=== PATIENT | female | born 1975 | race Two or more races ===

== ENCOUNTER 2025-06-09 04:32 | Emergency (ER) | payer OTHER, SELFPAY ==
[2025-06-09] VITALS (8 sets, daily range): BP systolic 80–147; BP diastolic 60–91; PULSE 70–98; RESP 16–20; TEMP 36.4–36.9; O2SAT 95–99; BMI 41.6
--- NOTE | ~2025-06-09 | CT_ITS ---
EXAMINATION: CT CHEST WITH CONTRAST CLINICAL INFORMATION: Abnormal chest x-ray. Left hilar abnormality. COMPARISON: Chest radiograph earlier same day. TECHNIQUE: Multidetector volumetric CT imaging of the chest was obtained after the administration of 50 mL of Omnipaque 350 intravenous contrast without immediate adverse reactions. Axial MIP volume rendering provided. Sagittal and coronal reformatted images were obtained. This CT examination was performed using dose optimization techniques as appropriate, variously including the following: *Automated exposure control *Adjustment of mA and/or kV according to patient size (this includes techniques or standardized protocols for targeted exams where dose is matched to indication/reason for exam; i.e. extremities or head) *Use of iterative reconstruction technique FINDINGS: LUNGS: The lungs are well inspired bilaterally. There is linear atelectasis or scarring in the right upper lobe. There are no consolidations or abnormal groundglass opacities. There is mild respiratory motion degradation. There is no effusion or pneumothorax. The small airways appear normal. Central airways are patent with mild expiratory appearance. 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 There is dilatation of the main and left greater than right pulmonary arteries in keeping with pulmonary arterial hypertension. This represents the abnormality seen on chest x-ray. Heart size is borderline enlarged. There is no pericardial effusion. The aorta is somewhat small in caliber however there is no evidence of acute aortic syndrome. There is no adenopathy or mass. The thyroid is normal. No esophageal abnormality. AXILLA\CHEST WALL: No lymphadenopathy or mass. UPPER ABDOMEN: Refer to the dedicated abdominal CT performed concurrently. OSSEOUS STRUCTURES: Median sternotomy. No lytic or blastic suspicious bone lesion. CT/CT chest w IV con IMPRESSION: 1. 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 2. Dilated pulmonary outflow tract and left greater than right main pulmonary arteries, responsible for the left hilar abnormality seen on chest x-ray. 3. There is no active lung disease identified. Electronically signed by: Nhan Angela MD 06/09/2025 10:45 AM EDT
--- NOTE | ~2025-06-09 | XR_ITS ---
CLINICAL HISTORY: upright, forceful vomiting, eval for free air 1 view chest x-ray Comparison: None provided Findings: The lungs are clear. Left hilar convexity is present. The heart is normal in size. Median sternotomy wires are present. No acute fracture. IMPRESSION: Left hilar convexity of indeterminate etiology. Recommend CT chest for further evaluation. This document has been electronically signed by: Erica Segura on 06/09/2025 05:18:02
--- NOTE | ~2025-06-09 | CT_ITS ---
EXAMINATION: CT ABDOMEN AND PELVIS WITH CONTRAST CLINICAL INFORMATION: Abdominal pain and vomiting. COMPARISON: None available. TECHNIQUE: Multidetector volumetric images were obtained from the superior aspect of the liver through the pubic symphysis following administration 85 mL of Omnipaque 350 intravenous contrast. Sagittal and coronal reformatted images were obtained on the technologist's workstation. Oral contrast: No This CT examination was performed using dose optimization techniques as appropriate, variously including the following: *Automated exposure control *Adjustment of mA and/or kV according to patient size (this includes techniques or standardized protocols for targeted exams where dose is matched to indication/reason for exam; i.e. extremities or head) *Use of iterative reconstruction technique FINDINGS: LUNG BASES: The visualized lung bases are unremarkable. Refer to dedicated chest CT performed concurrently. LIVER, GALLBLADDER, AND BILIARY TREE: The liver is normal in size, shape, and attenuation. No focal hepatic lesion or biliary ductal dilatation is present. Gallbladder demonstrates a tiny calcified gallstone within the neck of the gallbladder. Gallbladder otherwise appears normal without evidence of wall thickening or inflammation. PANCREAS: Unremarkable. SPLEEN: Unremarkable. ADRENAL GLANDS: Unremarkable. KIDNEYS AND URETERS: The right kidney is completely atrophic. The left kidney is compensatorily hypertrophied is a normal appearance. There is no hydronephrosis, calculus, or mass. There is no hydroureter. There is mild upper pole cortical scarring noted. BLADDER: Completely contracted although grossly normal. GASTROINTESTINAL TRACT: No evidence of appendicitis. Small bowel and large bowel have a normal appearance without wall thickening or inflammation. There is no obstruction. The rectum appears normal. The stomach is decompressed. The duodenum appears normal. PERITONEUM: No free air or ascites. ABDOMINAL WALL: No significant hernia is appreciated. LYMPH NODES: No abnormal lymphadenopathy. VASCULAR: Unremarkable. PELVIC VISCERA: There is a 2.5 cm simple appearing right ovarian cyst. Uterus and adnexal structures otherwise appear normal. OSSEOUS STRUCTURES: No suspicious lytic or blastic bone lesions. CT/CT abdomen pelvis w IV con IMPRESSION: 1. No acute findings in the abdomen or pelvis. 2. Completely atrophic right kidney. Compensatorily hypertrophied left kidney. 3. Tiny calcified gallstone. Gallbladder otherwise normal in appearance. 4. Additional ancillary findings as discussed in the body of the report. Electronically signed by: Nhan Angela MD 06/09/2025 10:56 AM EDT RP
--- NOTE | 2025-06-09 04:50 | ECG_ITS ---
Test Reason : SYNCOPE Blood Pressure : */* mmHG Vent. Rate : 76 BPM Atrial Rate : 76 BPM P-R Int : 216 ms QRS Dur : 78 ms QT Int : 392 ms P-R-T Axes : 70 28 99 degrees QTcB Int : 441 ms Sinus rhythm with 1st degree A-V block Low voltage QRS Cannot rule out Inferior infarct , age undetermined Abnormal ECG No previous ECGs available Referred By: Amrita Leal Electronically Signed By: JAGDISH ARCEO MD
[2025-06-09 04:56] LABS: MANUAL DIFF FLAG NO
[2025-06-09 04:57] LABS: Hematocrit 39.3 % (37.0-47.0); Hemoglobin 12.8 g/dl (12.0-16.0); Imm Gran Abs Auto 0.01 X10*3/uL (0.00-0.03); Imm Gran Pct Auto 0.1 % (0.0-0.4); Lymphocytes Absolute Auto 1.9 X10*3/uL (1.2-4.9); Mean Corpuscular HGB Conc 32.6 g/dl (31.0-35.0); Mean Corpuscular Hemoglobin 28.2 pg (27.0-33.0); Mean Corpuscular Volume 86.6 fL (80.0-98.0); NRBC Abs Auto 0.000 X10*3/uL (0.0-0.012); NRBC Pct Auto 0.0 /100WBC (0.0-0.2); Platelet Count 294 X10*3/uL (160-400); Red Blood Count 4.54 X10*6/uL (4.20-5.50); White Blood Count 8.7 X10*3/uL (4.8-10.8)
[2025-06-09] MEDS: Lactated Ringers 1,000 ML 999 ML IV (04:58)
[2025-06-09 05:09] LABS: INTERNATIONAL NORM RATIO 0.9 (0.9-1.1); Prothrombin Time 10.5 SEC (10.9-12.4)
[2025-06-09 05:10] LABS: Alanine Aminotransferase 14 U/L (0-31); Albumin Level 4.1 g/dL (3.5-5.0); Alkaline Phosphatase 58 U/L (39-117); Anion Gap 13 (12-20); Aspartate Amino Transferase 24 U/L (5-31); Blood Urea Nitrogen 13 mg/dL (9-16); Calcium 8.8 mg/dL (8.4-10.2); Carbon Dioxide 19 mmol/L (22-29); Chloride 111 mmol/L (96-108); Creatinine Clr Calc Pharmacy 95.5; Estimated Glomerular Filt Rate > 60; Lipase 34 U/L (8-78); Potassium 3.8 mmol/L (3.3-5.1); Sodium 139 mmol/L (135-145); Total Protein 6.9 g/dL (6.5-8.0)
[2025-06-09 05:17] LABS: Troponin-I High Sensitivity 3.3 ng/L (<3.5-17.0)
--- NOTE | 2025-06-09 06:10 | ED.NAVMDI ---
HPI - Nausea/Vomiting/Diarrhea General Chief complaint: Syncope Stated complaint: Abd Pain , Lethargy , vomiting Time Seen by Provider: 06/09/25 04:40 Source: patient and EMS Mode of arrival: EMS Limitations: language barrier History of Present Illness ED Provider: Dr. Amrita Leal HPI Narrative: 49-year-old female with history of diabetes, on Eliquis presenting with nausea, vomiting and diarrhea ongoing for the last 48 hours or so. Describes several episodes of thick, brown vomit over the course of the day today. Had a near syncopal episode tonight so family called 911. She has had more diarrhea episodes then she can count. Diarrhea is loose and watery, yellow in color. No hematochezia. No reported fever. No known sick contacts, travel, questionable food intake. Of note, patient reports recently starting Ozempic 2 weeks ago. Describes associated epigastric abdominal pain that is nonradiating and constant since it started. Related Data Previous Rx's ?Medication ?Instructions ?Recorded loperamide 2 mg tablet (Imodium 2 mg PO Q6H PRN loose stool #30 06/09/25 A-D) tabs ondansetron 4 mg disintegrating 4 mg PO Q8H PRN nausea and 06/09/25 tablet vomiting #20 tabs Allergies Allergy/AdvReac Type Severity Reaction Status Date / Time ciprofloxacin (From Cipro) Allergy Mild Chest Pain Verified 06/09/25 05:05 Review of Systems Review of Systems: As per HPI, full review of systems performed and negative but for the above mentioned pertinent positives and negatives. [facility] Social History Social History Alcohol intake: never Smoked in Last 30 Days: No Use of substances other than those prescribed or required for medical reasons: No Advance Directives: No Advance Directives Information Provided: No Patient : No Physical Exam Exam: Exam: GENERAL: Ill-Appearing, appears uncomfortable. SKIN: Normal skin color for ethnicity, warm, dry, no rashes noted. HEENT: Normocephalic, atraumatic, no stridor, dry mucous membranes, dentition intact, EOMI, PERRLA. NECK: Soft, supple, full ROM, midline structures nontender, no step-offs, no deformities, no lymphadenopathy. CHEST: Heart regular rhythm, no murmurs, symmetric chest rise and fall. PULMONARY: Clear to auscultation bilaterally, diminished at the bases, no labored breathing, no wheezes/rhales/rhonchi. ABDOMINAL: Soft, nondistended, diffusely tender to palpation without rebound or guarding, hyperactive bowel sounds in all quadrants. : Deferred. MUSCULOSKELETAL: Normal tone, full range of motion, no deformities, no peripheral edema. NEURO: Alert and oriented x3, CN II through XII intact, equal strength and sensation bilateral upper and lower extremities, no focal neurologic deficits. PSYCHIATRIC: Flat affect, fluid speech, good eye contact and appropriate demeanor. Vital Signs: Vital Signs: Last Vital Signs Temp 97.6 F 06/09/25 12:28 Pulse 85 06/09/25 12:28 Resp 18 06/09/25 12:28 BP 146/83 H 06/09/25 12:28 Pulse Ox 99 06/09/25 12:28 O2 Del Method Room Air 06/09/25 12:28 BMI result Body Mass Index 41.6 Course Course Course Narrative: no further vomiting but still having diarrhea no colitis on CT scan no signs of GIB will give immodium stool studies sent off. Reevaluation(s) Reevaluation #1: feeling better tolerating PO symptoms started after eating leftover burger from a fair that she air fried - at this time no GIB here, VS stable, tolerating PO. she is not immunosuppressed no need for abx can be DC home once she is feeling better Alisa Larson, DO 06/09/25 1132 Reevaluation #2: used steam tunnel feeder notified of norovirus dx 151pm had to leave message Medications Administered Discontinued Medications Generic Name Dose Route Start Last Admin Trade Name Areli PRN Reason Stop Dose Admin Diphenoxylate HCl/Atropine 2 tab 06/09/25 11:10 06/09/25 12:22 Diphenoxylate/Atrop 2.5/0.025 Tablet PO 06/09/25 11:11 2 tab ONCE ONE Administration Haloperidol Lactate 5 mg 06/09/25 06:26 06/09/25 07:00 Haloperidol Lactate 5 Mg/Ml Vial IVPUSH 06/09/25 06:27 5 mg ONCE ONE Administration Lactated Ringer's 1,000 mls @ 999 mls/hr 06/09/25 04:40 06/09/25 07:00 Lr IV 06/09/25 05:40 Infused .Q1H1M ONE Infusion Iohexol 100 ml 06/09/25 10:09 06/09/25 10:09 Iohexol 350 Mg/Ml 100 Ml Infus..Btl IV 06/09/25 10:10 85 ml ONCE ONE Administration Ondansetron HCl 4 mg 06/09/25 04:40 06/09/25 04:53 Ondansetron Hcl 4 Mg/2 Ml Vial IVPUSH 06/09/25 04:41 4 mg ONCE ONE Administration Pantoprazole Sodium 40 mg 06/09/25 04:40 06/09/25 04:53 Pantoprazole Sodium 40 Mg/10 Ml Vial IVPUSH 06/09/25 04:41 40 mg ONCE ONE Administration Medical Decision Making Medical Decision Making [facility] Narrative: Patient presents today with a chief complaint of vomiting. Differential diagnosis includes surgical emergency such as obstruction or enteritis, as well as hyperglycemia, acidosis, food or drug ingestion, pancreatitis, CVA, allergic reaction such asanaphylaxis, cannabis hyperemesis syndrome or cyclic vomiting syndrome, among many others. Patient [is not] showing signs of acute dehydration or hemodynamic instability. They are having associated abdominal pain. Broad-based work-up was initiated based on above history and physical exam. Patient continues to have significant diarrhea here in the emergency department. Watery, loose, yellow in color. Suspect her vomiting and abdominal pain may be related to starting Ozempic the couple of weeks ago however, could be infectious diarrhea. We will add on stool studies. She remains hemodynamically stable. Received a L of IV fluids. She is not anemic. Very low suspicion for GI bleeding at this time. CT of the chest added on for abnormal chest x-ray. Abdomen and pelvis CT as well for continued abdominal pain. Signing out to oncoming provider pending CT results and final disposition. Differential Diagnosis Differential Diagnoses: The differential diagnosis associated with the presentation includes (As above) Admission/Observation Consideration of admission/observation: Escalation of care including admission/observation considered Lab Data [facility] Lab Attestation statement: I reviewed the patient's lab results. 06/09/25 04:51 06/09/25 04:51 Labs: Lab Results 06/09/25 06/09/25 Range/Units 04:51 08:07 WBC 8.7 (4.8-10.8) X10*3/uL RBC 4.54 (4.20-5.50) X10*6/uL Hgb 12.8 (12.0-16.0) g/dl Hct 39.3 (37.0-47.0) % MCV 86.6 (80.0-98.0) fL MCH 28.2 (27.0-33.0) pg MCHC 32.6 (31.0-35.0) g/dl RDW 14.6 (11.0-16.0) % Plt Count 294 (160-400) X10*3/uL MPV 10.5 (9.4-12.3) fL Immature Gran % (Auto) 0.1 (0.0-0.4) % Neut % (Auto) 63.0 (45-73) % Lymph % (Auto) 21.8 (20-40) % [place] % (Auto) 7.0 (2-11) % Eos % (Auto) 7.9 H (0-4) % Baso % (Auto) 0.2 (0-2) % Lymph # (Auto) 1.9 (1.2-4.9) X10*3/uL [place] # (Auto) 0.6 (0.1-1.2) X10*3/uL Eos # (Auto) 0.7 H (0.0-0.4) X10*3/uL Baso # (Auto) 0.0 (0.0-0.2) X10*3/uL Abs Immat Gran (auto) 0.01 (0.00-0.03) X10*3/uL Absolute Neuts (auto) 5.5 (2.0-8.3) x10*3/uL Absolute Nucleated RBC 0.000 (0.0-0.012) X10*3/uL Nucleated RBC % (auto) 0.0 (0.0-0.2) /100WBC PT 10.5 L (10.9-12.4) SEC INR 0.9 (0.9-1.1) Sodium 139 (135-145) mmol/L Potassium 3.8 (3.3-5.1) mmol/L Chloride 111 H (96-108) mmol/L Carbon Dioxide 19 L (22-29) mmol/L Anion Gap 13 (12-20) BUN 13 (9-16) mg/dL Creatinine 0.82 (0.5-1.4) mg/dL Estim Creat Clear Calc 95.5 Estimated GFR > 60 Random Glucose 91 (60-115) mg/dL Calcium 8.8 (8.4-10.2) mg/dL Total Bilirubin 0.2 (0.0-1.0) mg/dL AST 24 (5-31) U/L ALT 14 (0-31) U/L Alkaline Phosphatase 58 (39-117) U/L Troponin I High Sens 3.3 (<3.5-17.0) ng/L Total Protein 6.9 (6.5-8.0) g/dL Albumin 4.1 (3.5-5.0) g/dL Lipase 34 (8-78) U/L Beta HCG, Quant < 2 mIU/mL Stl C. cayetanensis PCR Not Detected (Not Detect.) Stool Rotavirus A PCR Not Detected (Not Detect.) Stl Adenov F 40/41 PCR Not Detected (Not Detect.) Stool Astrovirus (PCR) Not Detected (Not Detect.) Stool Campylobacter PCR Not Detected (Not Detect.) Stool Cryptosporidium PCR Not Detected (Not Detect.) Stl Sh Tox Pr E STEC PCR Not Detected (Not Detect.) Stool E coli O157 PCR Not applicable (Not Detect.) Stl Enterotoxigenic E PCR Not Detected (Not Detect.) Stool EPEC (PCR) Not Detected (Not Detect.) Stool EAEC (PCR) Not Detected (Not Detect.) Stl E. histolytica PCR Not Detected (Not Detect.) Stool Giardia Lamblia PCR Not Detected (Not Detect.) Stl P. shigelloides PCR Not Detected (Not Detect.) Stool Salmonella PCR Not Detected (Not Detect.) Stool Sapovirus (PCR) Not Detected (Not Detect.) Stl Shigella/EIEC PCR Not Detected (Not Detect.) St Y.enterocolitica PCR Not Detected (Not Detect.) Stool Vibrio (PCR) Not Detected (Not Detect.) Stl Vibrio cholerae PCR Not Detected (Not Detect.) Stl Norovirus GI/GII PCR Detected A (Not Detect.) C. difficile Tox B Gene NEGATIVE (Negative) Radiology Impression Discussion of test interpretation with radiology: I have reviewed the radiologist's reading. Radiologist Impression: 1 view chest x-ray Comparison: None provided Findings: The lungs are clear. Left hilar convexity is present. The heart is normal in size. Median sternotomy wires are present. No acute fracture. IMPRESSION: Left hilar convexity of indeterminate etiology. Recommend CT chest for further evaluation. This document has been electronically signed by: Erica Segura on 06/09/2025 05:18:02 Chronic Conditions Patient?s care impacted by: Diabetes Discharge Plan Discharge Clinical Impression: Vasovagal syncope Diarrhea Qualifiers: Diarrhea type: unspecified type Qualified Code(s): R19.7 - Diarrhea, unspecified Nausea & vomiting Qualifiers: Vomiting type: unspecified Qualified Code(s): R11.2 - Nausea with vomiting, unspecified Patient Disposition: Home, Self-Care Instructions: Syncope (ED), Acute Nausea and Vomiting (ED), Acute Diarrhea (ED) Additional Instructions: CT scans reassuring labs reassuring stay hydrated this is likely due to eating a bad burger okay to take nausea medications and the immodium this will get better in 72 hours but you might have diarrhea for the rest of the week reasons to return blood in stool, fever over 101, severe abdominal pain or any other concerns lots of liquids and bland diet for 48 hours - rice, bananas, apple sauce, toast Prescriptions: New ondansetron 4 mg tablet,disintegrating 4 mg PO Q8H PRN (Reason: nausea and vomiting) Qty: 20 0RF loperamide [Imodium A-D] 2 mg tablet 2 mg PO Q6H PRN (Reason: loose stool) Qty: 30 0RF Rx Instructions: hold for bloody stools, fever over 101, severe abdominal pain Interventions: ED Discharge Assessment Last Done: 06/09/25 12:28 Discharge Date/Time: 06/09/25 12:49 Print Language: Tanzanian
--- NOTE | 2025-06-09 08:17 | PC.NURSE ---
pt incontinent of a large amount of yellow/liquid stool. pericare performed. fresh linen/hospital attire applied. stool specimen's obtained/sent to lab. pt turned/repositioned to comfort. pt waiting for CT to be completed at this time. plan of care ongoing. call love placed within reach.
[2025-06-09] MEDS: iohexoL 350 MG/ML 100 ML INFUS..BTL IV (10:09)
[2025-06-09 11:38] LABS: CDiff Gene PCR NEGATIVE (Negative)
--- NOTE | 2025-06-09 11:58 | MHC.CM.ED ---
Patient is currently in ER. Received notification patient is active with [facility]. Return referral made so agency can follow for d/c needs.
--- NOTE | 2025-06-09 12:23 | PC.NURSE ---
Pt tolerated PO challenge. Denies n/v/d. notified
[2025-06-09 13:02] LABS: E. coli EAEC Not Detected (Not Detect.); E. coli EPEC Not Detected (Not Detect.); E. coli ETEC Not Detected (Not Detect.); E. coli STEC Not Detected (Not Detect.); Shigella sp./EIEC Not Detected (Not Detect.)
--- NOTE | 2025-06-09 17:43 | PC.NURSE ---
this Rn took critical result of positive Norovirus, this RN called pt with interp to go over results and precautions at this time. Pt in agreement with plan and s/s she needs to be concerned of.
== END 2025-06-09 12:49 | disposition home or self-care (01) ==
PROVIDERS: Emergency Medicine; Emergency Provider Emergency Medicine; PCP Internal Medicine
DX: R55 Syncope and collapse (principal); R19.7 Diarrhea, unspecified; R11.2 Nausea with vomiting, unspecified; R91.8 Other nonspecific abnormal finding of lung field; R10.9 Unspecified abdominal pain; E11.9 Type 2 diabetes mellitus without complications; Z79.01 Long term (current) use of anticoagulants; Z79.899 Other long term (current) drug therapy
CPT/HCPCS: 36415; 71045; 71260; 74177; 80053; 83690; 84484; 84702; 85025; 85610; 87493; 87507; 93005; 96361; 96374; 96375; 99284; 99285; J1630; J2405; J2470; J7120; Q9967

== ENCOUNTER → 2025-06-09 04:50 | Outpatient (BNV) | payer OTHER, SELFPAY | PROVIDERS: Emergency Provider Emergency Medicine; PCP Internal Medicine; Visit Provider Radiology Vascular & Interventional Radiology | DX: K80.20 Calculus of gallbladder without cholecystitis without obstruction (principal); R91.8 Other nonspecific abnormal finding of lung field | CPT/HCPCS: 71045; 71260; 74177 ==

== ENCOUNTER → 2025-06-09 04:50 | Outpatient (BNV) | payer OTHER, SELFPAY | PROVIDERS: Emergency Provider Emergency Medicine; PCP Internal Medicine; Visit Provider Internal Medicine Cardiovascular Disease | DX: R94.31 Abnormal electrocardiogram [ECG] [EKG] (principal); R55 Syncope and collapse | CPT/HCPCS: 93010 ==